=== PATIENT | female | born 1960 | race Caucasian/White ===

== ENCOUNTER → 2017-11-21 10:19 | Outpatient (CLI) | payer OTHER, SELFPAY ==
--- NOTE | 2017-11-21 10:22 | BD_ITS ---
STUDY: DUAL ENERGY X-RAY ABSORPTIOMETRY / DXA REASON FOR EXAM: Female, 57 years old. Menopause at age 45. Hormone therapy. Calcium. Minimal exercise. TECHNIQUE: Bone Mineral Density (BMD) measurements of lumbar spine and bilateral hips were obtained. COMPARISON: December 24, 2012 FINDINGS: Lumbar Spine (L1-L4): g/cm2 (1.276) / T-score (0.6) / Z-score (1.6) Findings are suggestive of normal bone density with a low fracture risk. Left Femur Total: g/cm2 (1.123) / T-score (0.9) / Z-score (1.7) Left Femoral Neck: g/cm2 (1.022) / T-score (-0.1) / Z-score (1.1) Right Femur Total: g/cm2 (1.013) / T-score (0.0) / Z-score (0.8) Right Femoral Neck: g/cm2 (0.959) / T-score (-0.6) / Z-score (0.5) The T-Scores on the most recent prior examination were: Lumbar Spine (L1-L4): There has been no change of bone density since the previous examination. Left Femur Total: There is a been a decrease in bone mineral density of -7.4%. Right Femur Total: There is been a decrease in bone mineral density of -9.2%. BD/Dexa Bone Density Study IMPRESSION: The patient is considered normal as outlined below according to World Gianfr[employer] Organization (WHO) criteria with a low fracture risk. There has been worsening of bone density since the previous examination. Reference Information: The T-score is the number of standard deviations above or below the standard which is normal for young adults at their peak bone mineral density. The World Health Organization (WHO) interprets the T-scores as follows: Above -1 Normal bone density Between -1 and -2.5 Osteopenia Equal to / or below -2.5 Osteoporosis As a practical clinical guideline, osteopenia may be graded as follows: Mild -1 through -1.5 Moderate -1.6 through -2.0 Severe -2.1 through -2.4 The Z-score is the number of standard deviations above or below age-matched controls. A Z-score of less than -1.5 would be considered abnormal. References: 1. NIH Osteoporosis and Related Bone Diseases http://www.osteo.org 2. International Society for Clinical Densitometry http://www.iscd.org 3. National Osteoporosis Foundation http://www.nof.org Electronically Signed: Berto Wolf DO at 11:48 EDT Tel [phone], Service support ,
--- NOTE | 2017-11-21 10:24 | BI_ITS ---
MAMMOGRAPHY - BILATERAL SCREENING REASON FOR EXAM: Female, 57 years old. Routine annual screening examination. PERTINENT HISTORY: Non-contributory. TECHNIQUE: Digital bilateral breast riya (3D mammographic acquisition) in the CC and MLO projections. 2-D mediolateral oblique (MLO) and craniocaudad (CC) views of both breasts were obtained. CAD: Full Field Digital Mammography with Computer Added Detection was performed. COMPARISON: Comparison is made with prior study dated December 24, 2012. FINDINGS: Breast Composition: There are scattered areas of fibroglandular density. There are no dominant masses or suspicious calcifications. No other significant abnormalities are identified. There has been no significant change since the prior study. BI/SCREENING MAMM (CAD), BILAT IMPRESSION: Stable bilateral screening mammogram. Yearly follow-up mammogram recommended. (A) ASSESSMENT CATEGORY: BIRADS Category 1: Negative. A letter regarding these results will be sent to the patient by the facility within 30 days. Approximately 10% of breast cancers are not detected by mammography. A normal mammogram should not delay biopsy of a clinically suspicious abnormality. [id number] Electronically Signed: Yuniel Coleman MD at 11:10 EDT Tel [phone], Service support ,
== END ==
PROVIDERS: Family Provider Nurse Practitioner; PCP Internal Medicine; Visit Provider Family Medicine
DX: Z12.31 Encounter for screening mammogram for malignant neoplasm of breast (principal); Z78.0 Asymptomatic menopausal state
CPT/HCPCS: 77063; 77067; 77080

== ENCOUNTER → 2019-01-06 15:34 | Outpatient (CLI) | payer OTHER, SELFPAY ==
--- NOTE | 2019-01-06 15:36 | BI_ITS ---
MAMMOGRAPHY - BILATERAL SCREENING REASON FOR EXAM: Female, 58 years old. Routine annual screening examination. PERTINENT HISTORY: Non-contributory. The patient complains of left breast redness and inflammatory changes. TECHNIQUE: Digital bilateral breast risa (3D mammographic acquisition) in the CC and MLO projections. 2-D mediolateral oblique (MLO) and craniocaudad (CC) views of both breasts were obtained. CAD: Full Field Digital Mammography with Computer Added Detection was performed. COMPARISON: Comparison is made with prior study dated November 21, 2017 and December 24, 2012. FINDINGS: Breast Composition: The breasts are almost entirely fatty. There now is evidence of a well-circumscribed 3.6 cm x 2.7 cm mass in the deep slightly inferior central portion of the left breast. A biopsy is recommended for further evaluation. No other significant abnormalities are identified. BI/SCREEN MAMM (CAD) W/RISA BILAT IMPRESSION: Annual 3.6 cm x 2.7 cm soft tissue mass in the deep slightly inferior central portion of the left breast. A biopsy recommended. ASSESSMENT CATEGORY: BIRADS Category 4: Suspicious - Biopsy Should Be Considered. A letter regarding these results will be sent to the patient by the facility within 30 days. Approximately 10% of breast cancers are not detected by mammography. A normal mammogram should not delay biopsy of a clinically suspicious abnormality. [id number] Electronically Signed: Yuniel Coleman, at 10:28 EDT , Service support ,
== END ==
PROVIDERS: Family Provider Family Medicine; PCP Family Medicine; Referring Provider Family Medicine; Visit Provider Family Medicine
DX: Z12.31 Encounter for screening mammogram for malignant neoplasm of breast (principal)
CPT/HCPCS: 77063; 77067

== ENCOUNTER → 2019-02-06 13:04 | Outpatient (CLI) | payer OTHER, SELFPAY ==
[2019-02-04 10:07] VITALS: BMI 33.1
--- NOTE | 2019-02-06 13:23 | MRI_ITS ---
STUDY: BILATERAL BREAST MR WITHOUT AND WITH CONTRAST REASON FOR EXAM: Female, 58 years old. Left breast cancer. TECHNIQUE: Multi-sequence multi-echo imaging of both breasts was performed with a dedicated breast coil. T1-weighted and T2-weighted images were performed before the administration of contrast. T1-weighted images were also performed after the administration of 18 IV Dotarem without complications. COMPARISON: Bilateral mammograms dated January 06, 2019 FINDINGS: RIGHT BREAST: The breast tissue is fatty with no background enhancement. There are no abnormal enhancing masses or areas of non-mass enhancement in the right breast. LEFT BREAST: The breast tissue is fatty with minimal background enhancement. Lobulated enhancing mass in the posterior, inferior and slightly lateral aspect of the breast measuring 4.1 cm x 2.7 cm x 3.4 cm, corresponding to the mammographic abnormality. Tissue clip artifact within the mass. At least 2 markedly enlarged left axillary lymph nodes, one measuring 2.8 cm and one measuring 1.7 cm. There is no abnormality in the visualized regions of the chest or liver. MRI/Breast Bilateral W/O and W IMPRESSION: 4.1 x 2.7 x 3.4 cm enhancing mass corresponding to the mammographic abnormality. 2. Markedly enlarged left axillary lymph nodes, highly suspicious for axillary metastases. Right breast unremarkable. CATEGORY: BIRADS Category 6: Known Biopsy-Proven Malignancy - Appropriate Action Should Be Taken. A letter regarding these results will be sent to the patient by the facility within 30 days. Electronically Signed: Elijah Gandhi MD at 18:17 EDT , Service support ,
== END ==
PROVIDERS: Family Provider Family Medicine; PCP Family Medicine
DX: C50.912 Malignant neoplasm of unspecified site of left female breast (principal)
CPT/HCPCS: 77049; A9575; A4216; C8908

== ENCOUNTER → 2019-02-12 10:45 | Outpatient (CLI) | payer OTHER, SELFPAY ==
[2019-02-04 10:07] VITALS: BMI 33.1
[2019-02-11 15:07] VITALS: BMI 33.1
--- NOTE | 2019-02-12 10:57 | ECHODONC_ITS ---
Reason For Study: PRE-CHEMOTHERAPY Procedure This was a 2D Doppler, Color Flow transthoracic echocardiogram. Myocardial strain analysis was performed in this exam to aid in the assessment of cardiac function. Exam performed in department. Left Ventricle Normal size and thickness. The estimated ejection fraction is 65 %. Normal diastology for age. The global longitudinal strain = -18.2 % (normal). No regional wall motion abnormalities noted. Right Ventricle Normal size and thickness. Normal systolic function. Atria Normal left atrium. Normal right atrium. Normal atrial septum. Mitral Valve The mitral valve is structurally normal. No prolapse or stenosis seen. Tricuspid Valve Normal tricuspid valve. Trivial tricuspid valve insufficiency. Right ventricular systolic pressure estimated to be 28 mmHg. Aortic Valve Normal aortic valve. Trisinus/trileaflet aortic valve. Pulmonic Valve Normal pulmonic valve. Great Vessels Normal aortic root. Normal arch. Normal inferior vena cava. The inferior vena cava is dilated. Pericardium/Pleural No pericardial effusion. MMode/2D Measurements & Calculations LVIDd: 4.5 cm IVSd: 0.84 cm Ao root diam: 3.2 cm LVIDs: 2.9 cm LVPWd: 0.77 cm RVDd: 3.2 cm FS: 35.6 % LAV(MOD-bp): 48.5 ml LVAd ap4: 28.1 cm2 SV(MOD-sp4): 53.3 ml LAV(MOD-bp) Indexed: 24.5 ml/m2 EDV(MOD-sp4): 81.3 ml LAV(MOD-sp2): 49.5 ml EDV(sp4-el): 83.4 ml LAV(MOD-sp4): 45.6 ml LVAs ap4: 13.7 cm2 ESV(MOD-sp4): 27.9 ml ESV(sp4-el): 27.0 ml EF(MOD-sp4): 65.6 % EF(sp4-el): 67.6 % SV(sp4-el): 56.4 ml LA A4 area: 17.8 cm2 LA dimension(2D): 3.2 cm RA A4 area: 14.4 cm2 Time Measurements MV dec time: 0.24 sec Doppler Measurements & Calculations MV E max manuel: 67.0 cm/sec Lat Peak E' Manuel: 11.9 cm/sec Med Peak E' Manuel: 10.8 cm/sec MV A max manuel: 57.3 cm/sec E/E' lat: 5.6 E/E' med: 6.2 MV E/A: 1.2 Ao V2 max: 150.6 cm/sec LV V1 max: 152.2 cm/sec PA V2 max: 73.6 cm/sec Ao max P.1 mmHg LV V1 max P.3 mmHg TR max manuel: 232.6 cm/sec TR max P.7 mmHg Interpretation Summary The estimated ejection fraction is 65 %. Normal diastology for age. Trivial tricuspid valve insufficiency. Right ventricular systolic pressure estimated to be 28 mmHg. The global longitudinal strain = -18.2 % (normal). There is no comparison study available. Ordering Physician: Nelsy Middleton Referring Physician: Nelsy Middleton Performed By: Stacy King RDCS
== END ==
PROVIDERS: Family Provider Family Medicine; PCP Family Medicine; Referring Provider Internal Medicine Hematology & Oncology; Visit Provider Internal Medicine Hematology & Oncology
DX: Z51.11 Encounter for antineoplastic chemotherapy (principal)
CPT/HCPCS: 0399T; 93306

== ENCOUNTER 2019-02-18 05:47 | Day surgery (SDC) | payer OTHER, SELFPAY ==
[2019-02-11 15:07] VITALS: BMI 33.1
[2019-02-17 14:43] VITALS: BMI 33.1
[2019-02-18 06:15] VITALS: BP 108/83; PULSE 75; RESP 16; TEMP 37.2; O2SAT 98; BMI 33.0
[2019-02-18] MEDS: Lactated Ringers 1,000 ML 100 ML IV (06:25)
[2019-02-18] MEDS: Cefazolin 2 GM in 0.9% Normal Saline 100 ML IV (07:00)
--- NOTE | 2019-02-18 07:15 | HP_ITS ---
Intake Vital Signs 02/11/19 Body Mass Index (BMI) 33.1 02/11/19 Height 5 ft 5 in 02/11/19 Weight: 199 lb 4 oz 02/11/19 Body Mass Index (BMI) 33.1 02/11/19 Blood Pressure 110/72 02/11/19 Blood Pressure Location Rt brachial 02/11/19 Blood Pressure Position Sitting 02/11/19 Respiratory Rate 16 02/11/19 Pulse Rate 93 02/11/19 Pulse Source Monitor 02/11/19 Temperature 97.9 F 02/11/19 Temperature Source Oral 02/11/19 Pulse Ox 98 02/11/19 Oxygen Delivery Method room air Intake Visit Reasons: Port Consult Chief Complaint: Breast cancer Circular Stuffer Required: No Is patient in pain?: No Allergies No Known Allergies Allergy (Verified 02/11/19 15:05) Medications Cholecalciferol (Vitamin D3) [Vitamin D3] 10,000 unit PO DAILY 02/03/19 [History Confirmed 02/11/19] Multivitamin [Multiple Vitamins] 1 tab PO DAILY 02/03/19 [History Confirmed 02/11/19] Ropinirole HCl [Requip] 1 mg PO DAILY 02/03/19 [History Confirmed 02/11/19] Magnesium Oxide [Magnesium] 1,000 mg PO DAILY 02/04/19 [History Confirmed 02/11/19] PFS Medical History (Updated 02/11/19 @ 15:02 by Maria M Magana) Left breast mass (Acute) Abnormal screening mammogram (Acute) Cancer of central portion of left female breast (Acute) Regional lymph node metastasis present (Acute) Surgical History (Updated 02/11/19 @ 15:02 by Maria M Magana) H/O left breast biopsy (Acute) History of appendectomy (Acute) History of removal of ovarian cyst (Acute) History of total hysterectomy (Acute) Family History Mother Heart disease Glaucoma Father Pulmonary fibrosis Father Heart disease Social History (Updated 02/12/19 @ 15:10 by Michelle Montejo MD) Smoking Status: Never smoker alcohol intake: never substance use type: does not use caffeine: Yes what type of physical activity do you participate in: none frequency: does not exercise seatbelt use: always HPI HPI HPI: DYLAN ORTIZ, is a 58 F who presents to the office today for HPI HPI Surgical H&P: Yes HPI: DYLAN ORTIZ, is a 58 F who presents to the office today for port placement due to left breast cancer with mets to left axillary nodes. Patient is scheduled to have a PET scan on and started on neoadjuvant chemotherapy either on 02/17 or 02/19. Patient's surgeon is Dr. Whitlock at [facility]. ROS General General: Yes fatigue and breast cancer; no weight change or colon cancer Breast Breast: Yes left breast lump, abnormal mammogram and abnormal US; no right breast lump Exam Const General: cooperative, comfortable, no acute distress Chest Chest palpation & inspection: other (Normal inspection and palpation of upper bilateral chest) Breast Palpation: Yes axillary lymphadenopathy (On the left) Assessment & Plan Problems 1. Encounter for adjustment or management of vascular access device Z45.2 2. Cancer of central portion of left female breast C50.112 3. Regional lymph node metastasis present C77.9 Plan I have discussed above with the patient- Port-a-Cath placement. Right IJ Port-A-Cath Patient has been counseled as to the risks/benefits of the procedure. I have explained the risks of the surgery, including but not limited to: infection, bleeding, injury to any blood vessels/nerves, injury to lungs (such as pneumothorax or hemothorax and need for chest tube), not having any access, nonfunctioning of port due to thrombosis, infection of port, etc. the patient understands and agrees to proceed. I have answered all the patient's questions to the patient?s satisfaction and the patient has no further questions. Michelle Montejo M.D. Pager: [phone] [facility] [address] [place] [address], [address] [place] [address] Office: [phone] Plan Detail Follow Up We will schedule placement of right IJ Port-A-Cath Coding Level of Care Code Off vis,new,level 3 Diagnoses Encounter for adjustment or management of vascular access device Z45.2 Cancer of central portion of left female breast C50.112 Regional lymph node metastasis present C77.9 02/12/19 1510 <Electronically signed by Michelle Germain am, MD> Date _ Michelle Montejo MD I have examined the patient the following changes are noted: Patient will have chemotherapy later today after port placed.
[2019-02-18] MEDS: Bupivacaine Mpf 0.5% 30 ML VIAL (08:01)
--- NOTE | 2019-02-18 08:09 | PCM.OPRPT ---
Report of Operation Date of Procedure: 02/18/19 Pre-Operative Diagnosis: z45.2, left breast cancer Post-Operative Diagnosis: Same Surgery/Procedure Performed:: 1. Insertion of right IJ Port-A-Cath. 2. Use of ultrasound. 3. Use of fluoroscopy Type of Anesthesia:: MAC/Supplemental/Local Anesthesiologist: Kulwant Joya Special Medications: Ancef 2 g IV x1 Specimen's removed: None Estimated Blood Loss (mL): < 10 cc Fluids Replaced: 800 cc Description of Procedure: After informed consent was given, the patient was brought to the operating room and placed in the supine position. Appropriate time out protocol was followed. He was then given IV conscious sedation for anesthesia. The patient's right upper chest and neck were then prepped with a surgical skin preparation and sterile surgical drapes were placed. After proper landmarks were ascertained, the skin at the upper right chest area was then infiltrated with 1:1 mixture of 1% lidocaine with epinephrine and 0.5% maricaine. A needle trocar was then inserted into the right internal jugular vein with ultrasound guidance-multiple vessels were viewed with u/s and the right IJ was chosen-- and there was good aspiration of venous blood. A wire was then threaded into the needle trocar and this was visualized under fluoroscopy to ensure that the wire was in the superior vena cava. Once this was done, then the needle trocar was removed. A small skin pari was made with an 11 blade knife at the wire entrance site. The dilator with the introducer sheath attached was then placed over the wire into the right internal jugular vein via the Seldinger technique and this was visualized under fluoroscopy. The dilator and sheath were in proper position as visualized by fluoroscopy. A subcutaneous pocket was then created caudad to the catheter insertion site. A transverse skin incision was made after the skin and subcutaneous tissues were infiltrated with local anesthetic. Blunt dissection was then used to create a space large enough for placement of the subcutaneous port. The catheter was then tunneled into the subcutaneous pocket. The wire and dilator were then removed. The catheter was then threaded into the introducer sheath and was positioned with its tip at the junction of the superior vena cava and the right atrium as visualized under fluoroscopy. The excess catheter was transected. The catheter was then attached to the subcutaneous port using manufacturers guidelines. The catheter was flushed with a heparin saline mixture prior to placement. Hemostasis was carefully controlled with electrocautery. The port was sutured to the subcutaneous fascia using 2-0 Vicryl suture at two sites. The port was then placed in the subcutaneous pocket and the sutures were ligated. The incision were reapproximated with interrupted subdermal 3-0 vicryl sutures. The skin was reapproximated with 3-0 nylon suture in a interrupted fashion. Steristrips were used for reinforcement of the skin closure at IJ insertion site and a sterile opsite dressings were applied. The patient tolerated the procedure well. Implants Used: Bard PowerPort isp M.R.I. 6Fr Lot [id number] ref [id number] Grafts/Implants Used: [employer] PowerPort isp M.R.I. 6Fr Lot [id number] ref [id number] - Complications none
--- NOTE | 2019-02-18 08:12 | RAD_ITS ---
STUDY: X-RAY CHEST REASON FOR EXAM: Female, 58 years old. Post port placement. TECHNIQUE: Single AP portable view of the chest. COMPARISON: None. FINDINGS: A right-sided portacatheter has been placed. The tip is at the junction of the superior vena cava and right atrium. Increased markings at the left lung base suggestive of bleeding atelectasis. There is no demonstrated pleural abnormality. Normal size heart. Normal mediastinum and vitor. Normal visualized pulmonary arteries. Normal visualized aortic arch and descending thoracic aorta. Normal visualized thoracic spine. Normal visualized ribs, clavicles, and shoulders. There is no demonstrated abnormality of the visualized soft tissue structures of the upper abdomen. RAD/CXR for Line Placement IMPRESSION: The tip of the right andres catheter is at the junction of the superior vena cava and right atrium. Findings suggestive of left basilar atelectasis. Electronically Signed: Yuniel Coleman, at 9:40 EDT , Service support ,
--- NOTE | 2019-02-18 08:12 | PCM.DC.POR ---
Discharge Diet: No Restrictions Discharge Activity: May not drive while taking narcotic pain medications. May shower in (days): 5 - Keep port site clean and dry for 5 days, okay to take a lower shower and upper sponge bath or tape off the port site with a Ziploc bag taped at the edges, okay for the neck incision to get wet after 1 day Lifting Restrictions: No lifting greater than 15 pounds with the right arm x1 week Call your doctor if your incision/area has: Continuous Slow Oozing, Sudden Increased Bleeding, Increased Pain/ Swelling, Increased Redness, Foul Smelling Discharge, Swelling at the incision site Call your doctor if you observe: Fever of 101 or Higher Change Dressing in (Days):: 2 - Okay to keep OpSite on for 2 days Additional Instructions: Okay to take ibuprofen 400-600 mg PO q6hr PRN along with the Percocet. Avoid Tylenol since there is already Tylenol in the Percocet. Take all pain meds with food. Percocet can cause constipation recommend taking daily stool softener (i.e. Colace/docusate) while taking the pain meds. Recommend starting some MiraLAX in 1 to 2 days if no bowel movement. If still no bowel movement the following day recommend taking magnesium citrate half the bottle and waiting 4-6 hours if still no results take the other half the bottle. Allergies/Adverse Reactions: Allergies No Known Allergies Allergy (Verified 02/17/19 14:43) Medications to take at Discharge Cholecalciferol (Vitamin D3) [Vitamin D3] 10,000 unit PO DAILY 02/03/19 Multivitamin [Multiple Vitamins] 1 tab PO DAILY 02/03/19 Ropinirole HCl [Requip] 0.25 - 1 mg PO DAILY PRN 02/03/19 Magnesium Oxide [Magnesium] 1,000 mg PO DAILY 02/04/19 Oxycodone HCl/Acetaminophen [Percocet 5/325] 1 - 2 tab PO Q6H PRN PRN 3 Days #5 tab 02/18/19 The following prescriptions were given: Oxycodone HCl/Acetaminophen [Percocet 5/325] 1 - 2 tab PO Q6H PRN PRN 3 Days #5 tab PRN Reason: Pain Transmission Status: Received by [facility] Primary Care Physician: Kj Aguilar DO [Primary Care Provider] - Test Results: Test results from this visit will be discussed in further detail at your follow-up appointment, if applicable. Please Follow Up With: Michelle Montejo MD - After 5:00pm and on the weekend call [phone] with any concerns When: Call the office for a follow-up appointment in 10 days for suture removal Proposed Discharge Date: 02/18/19
[2019-02-18 08:20] VITALS: BP 101/67; BP 108/83; PULSE 94; RESP 18; TEMP 36.2; O2SAT 94
[2019-02-18 08:25] VITALS: BP 108/83; BP 98/69; PULSE 80; RESP 18; O2SAT 94
[2019-02-18 08:30] VITALS: BP 108/83; BP 98/73; PULSE 75; RESP 18; O2SAT 95
[2019-02-18 08:35] VITALS: BP 103/74; BP 108/83; PULSE 74; RESP 18; TEMP 36.1; O2SAT 98
[2019-02-18 09:04] VITALS: BP 108/83
== END 2019-02-18 10:01 | disposition home or self-care (01) ==
LOC: SDC 05:48 → AC 05:49
PROVIDERS: Family Provider Family Medicine; PCP Family Medicine; Referring Provider Surgery; Visit Provider Surgery
PROC: (CPT 36561; principal; 2019-02-18 07:15)
DX: Z45.2 Encounter for adjustment and management of vascular access device (principal); C50.112 Malignant neoplasm of central portion of left female breast; C77.3 Secondary and unspecified malignant neoplasm of axilla and upper limb lymph nodes
CPT/HCPCS: 00532; 36561; 71045; 77001; J2405

== ENCOUNTER → 2019-06-06 09:07 | Outpatient (CLI) | payer OTHER, SELFPAY ==
[2019-05-14 08:40] VITALS: BMI 34.9
[2019-05-29 16:11] VITALS: BMI 35.1
--- NOTE | 2019-06-06 09:08 | MRI_ITS ---
STUDY: BILATERAL BREAST MR WITHOUT AND WITH CONTRAST REASON FOR EXAM: Female, 58 years old. Core biopsy diagnosis of breast cancer February 06, 2019. Status post chemotherapy. Follow-up MRI study. TECHNIQUE: Multi-sequence multi-echo imaging of both breasts was performed with a dedicated breast coil. T1-weighted and T2-weighted images were performed before the administration of contrast. T1-weighted images were also performed after the administration of 19 cc of Dotarem contrast without complications. COMPARISON: Prior breast MR study dated February 06, 2019. No new mammograms provided for comparison. FINDINGS: RIGHT BREAST: The breast tissue is fatty with no background enhancement. There are no abnormal enhancing masses or areas of non-mass enhancement in the right breast. LEFT BREAST: The breast tissue is fatty with no background enhancement. The left breast mass identified on the prior MRI is no longer evident. No areas of abnormal enhancement or non-mass enhancement are present. The 2 enlarged lymph nodes in the left axilla are no longer present. There is no abnormality in the visualized regions of the chest or liver. MRI/Breast Bilateral W/O and W IMPRESSION: Resolution of left breast mass and axillary adenopathy on the left. No significant abnormality on the breast MRI with contrast. CATEGORY: BIRADS Category 6: Known Biopsy-Proven Malignancy - Appropriate Action Should Be Taken. A letter regarding these results will be sent to the patient by the facility within 30 days. Electronically Signed: Elijah Gandhi MD at 12:13 EST , Service support ,
== END ==
PROVIDERS: Family Provider Family Medicine; PCP Family Medicine; Referring Provider Internal Medicine Hematology & Oncology; Visit Provider Internal Medicine Hematology & Oncology
DX: Z01.818 Encounter for other preprocedural examination (principal); C50.112 Malignant neoplasm of central portion of left female breast; C77.9 Secondary and unspecified malignant neoplasm of lymph node, unspecified; Z92.21 Personal history of antineoplastic chemotherapy
CPT/HCPCS: 77049; A9575; A4216; C8908

== ENCOUNTER 2019-09-01 15:00 | Outpatient (RCR) | payer OTHER, SELFPAY ==
[2019-08-05 14:10] VITALS: BMI 34.9
[2019-08-07 09:32] VITALS: BMI 34.3
[2019-08-19 14:28] VITALS: BMI 34.8
--- NOTE | 2019-08-20 14:55 | HP.OTEVAL ---
Patient's Visit Information STONE OTRIZ is a 58 year old F, referred to Occupational Therapy by Kj Aguilar DO, with a diagnosis of left UE edema. Date of Evaluation: 08/20/19 Occupational Therapist: ADRY Arredondo/Priyank, CHT - Subjective Subjective: This 58 year old female was seen for OT eval with dx of left arm edema after left mastectomy- 07-08-19 with 17 axillary node disscetion. pt arrives for ROM/strength and lymphedema precaution. pt feels her ROM and strength has returned but noticed swelling in left UE. pt has been doing HEP of ROM and HEP with t-band and would like to know what she can do during her radiation to assist with swelling. - ROM ROM Comments: pt demo ROM WNL - Lymphedema (Circumferential Measure) MCP: right 20cm left 20.2cm Wrist: right 17cm left 17.5cm Lower forearm: right 21.5cm left 22.5cm Largest forearm: right 26.8cm left 28cm Elbow: right 27cm left 28.5cm Largest humerus: right 32cm left 32.5cm Axcillary: right 34cm left 34cm - Sensation Sensation Comments: denies to fingers-. states under left UE some numbness - Quick DASH-Disab of Arm,Shoulder& Hand Quick DASH Score: 11.6650 - Goals Demonstrate a 20% reduction in edema by d/c: Yes Demonstrate adequate knowledge skin care/prec by 2nd week: Yes Demonstrate adequate knowledge therapeutic exercises by d/c: Yes Select approp compression garment w/donning/care/wear by d/c: Yes Voice need to replace compression garment every 4-6mo by dc: Yes - Rehabilitation General Assessment: pt demo with a slight increase in left UE edema- pt would benefit from skilled OT services to 1x week for 4 weeks to provide MLD, ed. on lymphedema mtg and use of compression garments for tavel. Pt demo understanding and agree to POC Rehabilitation Potential: Good - Anticipated Interventions Anticipated Interventions: Education re Diagnosis, Manual Lymph Drainage, Education re Life-long lymphedema Management, Education re Skin Care and Precautions, Education re Self Massage Techniques, Education re Correct Donning Tech,Care&Wearing Sched Comp Garments, Home Program - Visit Plan Frequency: 1x/Week Duration: 4 Weeks General Plan: pt will return to have therapist perform MLD and ed. pt further on self MLD TEXT: Thank you for the opportunity to evaluate your patient. For Medicare and Medicare HMO plans, please review the plan of care and approve it. It will need to be FAXED BACK to us at [phone] for Medicare purposes. Please let me know if there are questions or concerns regarding this plan of care. Physician Signature: Date:
--- NOTE | 2019-08-26 14:30 | HP.PTEVAL ---
Patient's Visit Information STONE ORTIZ is a 58 year old F referred to Physical Therapy by Kj Aguilar DO with a diagnosis of LBP with radiculopathy. Date of Evaluation: 08/26/19 Physical Therapist: Trent Mai DPT - Visit Plan Frequency: 2x /Week Duration: 4 Weeks Plan: Start with HS stretching, piriformis stretcing, hip flexor stretching, METS for pelvic positoning. Add in REIL as well. Progress core stability exercises as tolerated. Pt. asked about DN to her lumbar spine musculature. I talked to her to talk with her oncologist to determine if they felt comfortable with this procedure. Pt. consents. - Subjective Subjective: Pt. is here today for her initial evaluation with diagnosis of LBP with raddiculopathy down LLE. Pt. reports having pain for a few weeks now after being laid up with breast cancer and mastecomy. Pt. is no done with chemo, but is recieving radiation. Pt. reports having increased pain with prolonged sitting, expecially with getting up/down. Pt. reports having L sided SI pain that goes down her leg into hip and calf. She has started to see a chiropractor x1 visit, no chagne as of yet. Pt. denies N/T in iether LE. No muscle weakness. Pt. reports diffiiculty sleeping as she can not get comfortable as well. Pt. is hopeful to reduce symptoms. - Pain L post hip Pain Intensity (Out of 10): 5 Pain Intensity Range: 2, 9 L calf Pain Intensity (Out of 10): 5 Pain Intensity Range: 2, 9 L lumbar spine Pain Intensity (Out of 10): 1 Pain Intensity Range: 0, 5 L SI region Pain Intensity (Out of 10): 3 Pain Intensity Range: 3, 6 - Objective POSTURE: Pt. has rounded shoulder, fwrd flexed posture. Pt. has FH as well. Pt. has general slouched posture. Pt. is able to correct, but has increasred pain when doing so. Pt. has similar posture in stnace, no lateral shift deviation noted. PALPATION: Pt. had increased tenderness noted at L SI region and Bilat piriformis muscle bellies. Pt. has no pain with spring testing of Lumbar spine, hypomobility noted throughout. NEURO: normal throughout bilateral sensation and DTR bilaterally. Pt. has no neuro signs. ROM: LUMBAR SPINE: flexion- min loss increase NW, extension- min loss increase NW, SB ni loss Ne, rotation nil loss NE. Pt. has tight HS and hip flexors bilaterally. Pt. has increase in symptoms with hip ER and adduction, but minimally. MMT: Pt. has 5/5 strength of distal BLEs, 4/5 throughout hip musculature bilaterally increase in pain with L hip flexion and extension. GAIT: PT. has sligth fwrd flexed posture with gait, increased R lateral shift with walking. pt. reports increased pain with increased walking. - Special Tests L/S Slump test left side: Positive L/S Slump test right side: Negative L/S Left Straight Leg Raise: Positive L/S Right Straight Leg Raise: Negative Lumbar Standing: Flexion - Mechanical Response: No effect Lumbar Standing: Flexion - Symptoms During Testing: Decreases Lumbar Standing: Flexion - Symptoms After Testing: No better Lumbar Standing: Extension - Mechanical Response: No effect Lumbar Standing: Extension - Symptoms During Testing: Increases Lumbar Standing: Extension - Symptoms After Testing: No worse - Goals Goal 1:: LTG: Pt. to be I with HEP. Goal 2:: STG: Pt. to be able to sleep without increase in symptoms. Goal Time Frame: 2-4 Weeks Goal 3:: LTG: Pt. to have full lumbar ROM without increase in symptoms. Goal Time Frame: 4-6 Weeks Goal 4:: STG: Pt. to walk unlimited distances without increase in symptoms. Goal Time Frame: 2-4 Weeks Goal 5:: LTG: pt. to have increased core and hip strength increased by 1/2 grade of all effected musculature. Goal Time Frame: 4-6 Weeks Goal 6:: LTG: Pt. to complete all work activities without increase in symptoms. Goal Time Frame: 4-6 Weeks - Rehabilitation Potential Physical Therapy Diagnosis: Pt. has signs and symptoms of radicular symptoms. Pt. has + leg length discrepency indicative of SI disfuction, + gillettes test, she had some changes with repeated motions, but no much. Pt. would benefit from PT to increase lumbar ROM without increase in symptoms, progress core stability, increase overall erect posture and tolerance to all functional mobility. Rehabilitation Potential: Good - Anticipated Interventions Patient/Client Instruction: Educate patient on: Condition, Plan of Care, Risk Factors, Benefits of Fitness Program For the Purpose of:: To improve decision making, To facilitate caregiver knowledge, To improve self management, To prevent re-injury, To improve ability to perform tasks related to life management, To improve tolerance to ADL's Therapeutic Exercise to Include: Strength training, Power training, Body mechanics, Postural training, Flexibilty training, Gait and locomotor training, Passive ROM, Active ROM For the Purpose of:: To decrease pain, To decrease swelling/inflammation, To increase ROM, To improve nutrient delivery to tissue, To increase oxygenation perfusion, To improve muscle performance and motor function, To improve ability of physical actions for home/community/work/leisure, To improve gait and locomotor functions, To improve health of tissue, To decrease soft tissue restriction, To increase flexibility/ROM Manual Therapy Techniques to Include: Mobilization, Passive ROM, Functional dry needling, Soft tissue mobilization For the Purpose of:: To decrease pain, To decrease swelling/inflammation, To increase ROM, To improve nutrient delivery to tissue Thank you for the opportunity to evaluate your patient. For Medicare and Medicare HMO plans, please review the plan of care and approve it. It will need to be FAXED BACK to us at [phone] for Medicare purposes. For Medicare only, by signing this I certify the plan of care. Please let me know if there are questions or concerns regarding this plan of care. Physician Signature: Date:
--- NOTE | 2019-11-18 12:27 | HP.OT.NRP ---
STONE ORTIZ was seen in my office for initial evaluation on 08/20/19. The following Plan of Care was established for this patient: Initial Frequency: 1x/Week Initial Duration: 4 Weeks Plan: return as needed in next 6 weeks Anticipated Interventions: Education re Diagnosis, Manual Lymph Drainage, Education re Life-long lymphedema Management, Education re Skin Care and Precautions, Education re Self Massage Techniques, Education re Correct Donning Tech,Care&Wearing Sched Comp Garments, Home Program This patient was last seen in our office 08/25/19. Pertinent comments regarding their Occupational therapy will appear below: pt was seen for 2 OT session. pt was ed. on ROM and was progressing pt has not scheduled any further skilled therapy sessions and is d/c at this time due to time lapse in skilled services. At this point I will be discontinuing this patient from occupational therapy. I would be happy to see this patient again in the future if found appropriate by the physician. Thank you! Whit Edwards, OTR/L, CHT
== END 2019-09-01 19:00 | disposition home or self-care (01) ==
LOC: PT 15:00
PROVIDERS: PCP Family Medicine; Referring Provider Family Medicine; Visit Provider Family Medicine
DX: C50.312 Malignant neoplasm of lower-inner quadrant of left female breast (principal); Z17.0 Estrogen receptor positive status [ER+]
CPT/HCPCS: 97035; 97110; 97140; 97161; 97166

== ENCOUNTER → 2020-01-15 15:56 | Outpatient (CLI) | payer OTHER, SELFPAY ==
[2019-08-05 14:10] VITALS: BMI 34.9
[2019-10-28 13:49] VITALS: BMI 35.0
--- NOTE | 2020-01-15 16:05 | BD_ITS ---
STUDY: DUAL ENERGY X-RAY ABSORPTIOMETRY / DXA REASON FOR EXAM: Female, 59 years old. Age of todd 45. Pat is 205# and 64 and quot; a loss of 1 and quot; per pat. Past hx of using Estrodyl. Takes a multi-vit. Does a little exercising. Mother has osteo. TECHNIQUE: Bone Mineral Density (BMD) measurements of lumbar spine and bilateral hips were obtained. COMPARISON: Comparison is made with prior examination dated 12/24/2012. FINDINGS: Lumbar Spine (L1-L4): g/cm2 (1.267) / T-score (0.7) / Z-score (1.9) Findings are suggestive of normal bone density with a low fracture risk. Left Femur Total: g/cm2 (1.098) / T-score (0.7) / Z-score (1.6) Left Femoral Neck: g/cm2 (0.957) / T-score (-0.6) / Z-score (0.6) Right Femur Total: g/cm2 (1.029) / T-score (0.2) / Z-score (1.0) Right Femoral Neck: g/cm2 (0.918) / T-score (-0.9) / Z-score (0.3) The T-Scores on the most recent prior examination were: Lumbar Spine (L1-L4): There has been improvement of bone density since the previous examination. Left Femur Total: which represents a worsening of 2.2%. Right Femur Total: which represents an improvement of 1.6%. BD/Dexa Bone Density Study IMPRESSION: The patient is considered normal as outlined below according to World Gianfranco Organization (WHO) criteria with a low fracture risk. There has been improvement of bone density since the previous examination. Reference Information: The T-score is the number of standard deviations above or below the standard which is normal for young adults at their peak bone mineral density. The World Health Organization (WHO) interprets the T-scores as follows: Above -1 Normal bone density Between -1 and -2.5 Osteopenia Equal to / or below -2.5 Osteoporosis As a practical clinical guideline, osteopenia may be graded as follows: Mild -1 through -1.5 Moderate -1.6 through -2.0 Severe -2.1 through -2.4 The Z-score is the number of standard deviations above or below age-matched controls. A Z-score of less than -1.5 would be considered abnormal. References: 1. NIH Osteoporosis and Related Bone Diseases http://www.osteo.org 2. International Society for Clinical Densitometry http://www.iscd.org 3. National Osteoporosis Foundation http://www.nof.org Electronically Signed: Yuniel Coleman, at 13:07 EDT , Service support ,
== END ==
PROVIDERS: PCP Family Medicine; Referring Provider Internal Medicine Hematology & Oncology; Visit Provider Internal Medicine Hematology & Oncology
DX: C50.112 Malignant neoplasm of central portion of left female breast (principal); M85.80 Other specified disorders of bone density and structure, unspecified site; Z90.13 Acquired absence of bilateral breasts and nipples; Z90.12 Acquired absence of left breast and nipple
CPT/HCPCS: 77080

== ENCOUNTER → 2020-04-01 13:55 | Outpatient (CLI) | payer OTHER, SELFPAY ==
[2019-08-05 14:10] VITALS: BMI 34.9
[2020-03-03 11:26] VITALS: BMI 34.1
--- NOTE | 2020-04-01 13:55 | ECHODONC_ITS ---
Reason For Study: DYSPNEA/SOB Procedure This was a 2D Doppler, Color Flow transthoracic echocardiogram. Myocardial strain analysis was performed in this exam to aid in the assessment of cardiac function. Exam performed in department. Left Ventricle Normal LV size. Left ventricular systolic function is normal. The estimated ejection fraction is 65 %. Stage 1 diastolic dysfunction. No regional wall motion abnormalities noted. Right Ventricle Normal RV size. Normal systolic function. Atria Normal left atrium. Normal right atrium. Mitral Valve Normal mitral valve. Tricuspid Valve Normal tricuspid valve. Aortic Valve Normal aortic valve. Trisinus/trileaflet aortic valve. Pulmonic Valve Normal pulmonic valve. Great Vessels Normal aortic root. The pulmonary artery is normal size. Normal inferior vena cava. Pericardium/Pleural No pericardial effusion. MMode/2D Measurements & Calculations LVIDd: 4.0 cm IVSd: 0.90 cm Ao root diam: 3.2 cm LVIDs: 2.4 cm LVPWd: 0.96 cm RVDd: 3.3 cm FS: 41.2 % LAV(MOD-bp): 36.4 ml LVAd ap4: 21.2 cm2 SV(MOD-sp4): 36.0 ml LAV(MOD-bp) Indexed: 18.2 ml/m2 EDV(MOD-sp4): 53.6 ml LAV(MOD-sp2): 36.8 ml EDV(sp4-el): 54.8 ml LAV(MOD-sp4): 34.9 ml LVAs ap4: 10.6 cm2 ESV(MOD-sp4): 17.6 ml ESV(sp4-el): 16.7 ml EF(MOD-sp4): 67.2 % EF(sp4-el): 69.6 % SV(sp4-el): 38.2 ml LA A4 area: 14.5 cm2 LA dimension(2D): 3.3 cm RA A4 area: 14.0 cm2 Time Measurements MV dec time: 0.26 sec Doppler Measurements & Calculations MV E max manuel: 64.2 cm/sec Lat Peak E' Manuel: 8.6 cm/sec Med Peak E' Manuel: 7.3 cm/sec MV A max manuel: 79.7 cm/sec E/E' lat: 7.5 E/E' med: 8.8 MV E/A: 0.81 Ao V2 max: 160.6 cm/sec LV V1 max: 131.6 cm/sec PA V2 max: 93.4 cm/sec Ao max P.3 mmHg LV V1 max P.9 mmHg PI end-d manuel: 81.4 cm/sec Interpretation Summary Normal LV size. Left ventricular systolic function is normal. The estimated ejection fraction is 65 %. Stage 1 diastolic dysfunction. The global longitudinal strain is normal. The global longitudinal strain = -22.2 % (normal). Ordering Physician: Williams Bauman Referring Physician: BYRON SHIPMAN Performed By: Stacy King RDCS
== END ==
PROVIDERS: PCP Family Medicine; Visit Provider Internal Medicine Cardiovascular Disease
DX: I34.0 Nonrheumatic mitral (valve) insufficiency (principal); R06.00 Dyspnea, unspecified; R06.02 Shortness of breath
CPT/HCPCS: 93306; 93356

== ENCOUNTER 2020-04-29 15:00 | Outpatient (RCR) | payer OTHER, SELFPAY ==
[2019-08-05 14:10] VITALS: BMI 34.9
[2019-10-28 13:49] VITALS: BMI 35.0
--- NOTE | 2019-12-30 15:09 | HP.PTEVAL ---
Patient's Visit Information STONE ORTIZ is a 59 year old F referred to Physical Therapy by Dr. Kj Aguilar DO with a diagnosis of Upper back and cervical spine pain. Date of Evaluation: 12/23/19 Physical Therapist: Trent Mai DPT - Visit Plan Frequency: 2x /Week Duration: 4 Weeks Plan: Start with thoracic extension progression, pec stretcing. Progress to cervical retraction. - Subjective Pt. is here today for her initial evaluation with diagnosis of neck and upper back pain. Pt. reports having pain for a few months now with out a mech of injury. Pt. is also having N/T and pain in her L arm, generally throughout. Pt. reports no sudden weakness, but is having more pain today, especially in her medial forearm. Pt. 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 Pt. did have a mastectomy L side earlier this year with lymph node removal. Pt. did have similar pain in her low back ealier this year which is being managed. Pt. is having some pain in her shoulder and forearm. Pt. is hopeful to reduce symptoms in order to get back to all recreational actvitiies without limitations. - Pain L shoulder Pain Intensity (Out of 10): 2 Pain Intensity Range: 0, 4 L forearm Pain Intensity (Out of 10): 4 Pain Intensity Range: 0, 6 Comment: medial aspect - Objective POSTURE: Pt. has slighg FH posture with sligth rounded shoulders. Pt. has increased thoracic kyphosis, resulting in increased extension of lower cervical spine. PALPATION: Pt. has tenderness throughotu B cervical erector spinea. Hypomobility noted at CT junction and C5-C7, C7-T3. Mild increase in pain with spring testing. NEURO: Pt. reports normal sensation to light and sharp touch. Pt. did report slight tingling along medial arm on L side. ROM: CERVICAL SPINE: flexion min loss NE, extension min loss increase NW, rotation min/nil loss bilat NE, protractino - nil loss NE, retraction min loss increase NW. SHOULDERS- R shoulder full ROM without increase in symptoms. L shoulder- flexion 165deg NE, abd 165deg NE, functional ER- normal, functional IR normal. MMT: pt. has 5-/5 B UE strength throughout. No myotomal weaknesses noted. - Goals Goal 1:: LTG: Pt. to be I with HEP. Goal Time Frame: 4-6 Weeks Goal 2:: LTG: Pt. to have 0-2/10 pain in L arm and cervical spine. Goal Time Frame: 4-6 Weeks Goal 3:: LTG: Pt. to sleep throughout the night with no issues. Goal Time Frame: 4-6 Weeks Goal 4:: LTG: Pt. complete all work activities without increase in symptoms. Goal Time Frame: 4-6 Weeks Goal 5:: STG: Pt. to demonstrate improved posture in gym indicating increased postural awareness. Goal Time Frame: 2-4 Weeks Goal 6:: STG: Pt. to have full thoracic extension without increase in symptoms. Goal Time Frame: 2-4 Weeks - Rehabilitation Potential Physical Therapy Diagnosis: Pt. has signs and symptoms consistent with upper thoracic and lower cervical spine pain resulting in L arm pain. Pt. has a history of mastectomy L side, which I can not rule out impact from this surgery, but it appears to be most likely due to increased thoracic kyphosis most likely to protect post surgical area resulting in increased stress at CT joint. Rehabilitation Potential: Good - Anticipated Interventions Patient/Client Instruction: Educate patient on: Condition, Plan of Care, Risk Factors, Benefits of Fitness Program For the Purpose of:: To improve decision making, To facilitate caregiver knowledge, To improve self management, To prevent re-injury, To improve ability to perform tasks related to life management, To improve tolerance to ADL's Therapeutic Exercise to Include: Strength training, Body mechanics, Postural training, Flexibilty training, Passive ROM, Active ROM, Dynamic Lumbar Stabilization, Fernando Exercises For the Purpose of:: To decrease pain, To decrease swelling/inflammation, To increase ROM, To improve nutrient delivery to tissue, To increase oxygenation perfusion, To improve muscle performance and motor function, To improve ability to perform ADL's, To improve health of tissue, To decrease soft tissue restriction, To increase flexibility/ROM, To reduce risk of recurrence, To improve safety Thank you for the opportunity to evaluate your patient. For Medicare and Medicare HMO plans, please review the plan of care and approve it. It will need to be FAXED BACK to us at [phone] for Medicare purposes. For Medicare only, by signing this I certify the plan of care. Please let me know if there are questions or concerns regarding this plan of care. Physician Signature: Date:
--- NOTE | 2020-01-20 07:34 | HP.OTEVAL ---
Patient's Visit Information STONE ORTIZ is a 59 year old F, referred to Occupational Therapy by Dr. Kj Aguilar DO, with a diagnosis of breast cancer/left UE lymphedema. Date of Evaluation: 01/15/20 Occupational Therapist: Whit Edwards, NAYR/Priyank, CHT - Subjective This 59 year old female was seen for OT eval with dx of left arm edema after left mastectomy- 07-08-19 with 17 axillary node disscetion. pt arrives for ROM/strength and lymphedema precaution. pt feels her ROM and strength has returned but noticed swelling in left UE. pt states she was feeling good and had returned to performing her ADLS and IADLs but notices pain in her forearm about a month ago- pt also reports she started PT to work on strength and ROM- pt states she did not get her compression sleeve until las week. has glove but is to big for her so she hasnt been wearing it she has been wearing her sleeve down to her MCPs. - Pain left UE 2 Pain Intensity Range: 2, 5 - ROM ROM Comments: pt demo with limitations of shoulder flex and abd to 90* and then she gets tingling in her arm- - Lymphedema (Circumferential Measure) MCP: right 20cm left 22.2 cm Wrist: right 17cm left 18cm Lower forearm: right 21cm left 23 cm Largest forearm: right 26cm left 29cm Elbow: right 27cm left 28cm Largest humerus: right 32cm left 33cm Axcillary: right 34cm left 36cm Upper Exremity Comments: pt demo with a increase in lola from initial measurements 4 months ago (avg. increase was 2cm) - Goals Demonstrate a 20% reduction in edema by d/c: Yes Demonstrate adequate knowledge of self-massage by 2nd week: Yes Demonstrate adequate knowledge skin care/prec by 2nd week: Yes Demonstrate adequate knowledge therapeutic exercises by d/c: Yes Select approp compression garment w/donning/care/wear by d/c: Yes Voice need to replace compression garment every 4-6mo by dc: Yes - Rehabilitation General Assessment: pt demo with limited left shoulder ROM, scar adhesions and cording to left axilly webbing creaping down to elbow and forearm. with shoulder ROM pt has positive ting/numb. pt would benefit from skilled OT servcies 1-2x week for 6 weeks to cont. to ed. pt on SMLD, scar mtg, compression garment use and end range stretching. will cordinate therapy services with PT as to not overlap services. pt demo understanding and agree to POC. Rehabilitation Potential: Good - Anticipated Interventions A/AAROM/PROM, Scar Care, Triggerpoint Release, Desensitization, Modalities, Joint Protection/Energy Conservation, Ergonomic Education, Education re Diagnosis, Manual Lymph Drainage, Education re Life-long lymphedema Management, Education re Skin Care and Precautions, Education re Self Massage Techniques, Education re Correct Donning Tech,Care&Wearing Sched Comp Garments, Caregiver Training, Home Program - Visit Plan Frequency: 1-2x /Week Duration: 6 Weeks TEXT: Thank you for the opportunity to evaluate your patient. For Medicare and Medicare HMO plans, please review the plan of care and approve it. It will need to be FAXED BACK to us at [phone] for Medicare purposes. Please let me know if there are questions or concerns regarding this plan of care. Physician Signature: Date:
--- NOTE | 2020-02-18 11:32 | HP.PTREVAL ---
Dr. Kj Aguilar, DO, It has been my pleasure to treat STONE ORTIZ over the last 8 visits for Upper back and cervical spine pain. Please see the progress note below for an update on the physical therapy plan of care! Subjective: Pt. reports having mild CERVANTES this date, but had improved with OT. PT. reports tingling in hand has been a bit better. Pt. reports no major issues today. HEP compliant,. Objective/Function: Pt. tolerated all PT without adverse reaction. pt. is to trial exercises on own. She is to folloe up with PT as needed. Pt. has some stiff in her cervicaal ROM, greatest with extensin and wih rotation L. She is working on towel SNAGs to increase this ROM. Pt. is workin femi RTC exercises to increase stability as well. Pt. will be trying these for a 1 or 2 to determine if she can continue to manage, if not see can come back and seen me sooner. Plan Plan: Pt. will be HEP for 1-2 week to determine if she can continue to manage, if not see can come back and seen me sooner. Goals Goal 1:: LTG: Pt. to be I with HEP. Goal Time Frame: 4-6 Weeks Goal Progress: Progressing Goal 2:: LTG: Pt. to have 0-2/10 pain in L arm and cervical spine. Goal Time Frame: 4-6 Weeks Goal Progress: Progressing Goal 3:: LTG: Pt. to sleep throughout the night with no issues. Goal Time Frame: 4-6 Weeks Goal Progress: Progressing Goal 4:: LTG: Pt. complete all work activities without increase in symptoms. Goal Time Frame: 4-6 Weeks Goal Progress: Progressing Goal 5:: STG: Pt. to demonstrate improved posture in gym indicating increased postural awareness. Goal Time Frame: 2-4 Weeks Goal Progress: Goal Met Goal 6:: STG: Pt. to have full thoracic extension without increase in symptoms. Goal Time Frame: 2-4 Weeks Goal Progress: Goal Met Anticipated Interventions Patient/Client Instruction: Educate patient on: Condition, Plan of Care, Risk Factors, Benefits of Fitness Program For the Purpose of:: To improve decision making, To facilitate caregiver knowledge, To improve self management, To prevent re-injury, To improve ability to perform tasks related to life management, To improve tolerance to ADL's Therapeutic Exercise to Include: Strength training, Body mechanics, Postural training, Flexibilty training, Passive ROM, Active ROM, Dynamic Lumbar Stabilization, Fernando Exercises For the Purpose of:: To decrease pain, To decrease swelling/inflammation, To increase ROM, To improve nutrient delivery to tissue, To increase oxygenation perfusion, To improve muscle performance and motor function, To improve ability to perform ADL's, To improve health of tissue, To decrease soft tissue restriction, To increase flexibility/ROM, To reduce risk of recurrence, To improve safety Please do not hesitate to contact me at [phone] by phone or if you have questions or concerns regarding this new plan of care! Sincerely, CARLITOS BaileyT
== END 2020-04-29 19:00 | disposition home or self-care (01) ==
LOC: OT 15:00
PROVIDERS: PCP Family Medicine; Referring Provider Family Medicine; Visit Provider Family Medicine
DX: M62.838 Other muscle spasm (principal); M54.5 Low back pain; M62.830 Muscle spasm of back
CPT/HCPCS: 97110; 97140; 97161; 97166; 97530

== ENCOUNTER 2021-04-09 14:20 | Emergency (ER) | payer OTHER, SELFPAY ==
[2019-08-05 14:10] VITALS: BMI 34.9
[2021-04-09 14:21] VITALS: BP 123/90; PULSE 93; RESP 18; TEMP 36; O2SAT 100; BMI 34.7
--- NOTE | 2021-04-09 14:31 | ED.RN ---
Wound not observed but described as red like it's coming to a head. States was not like lump she felt before.
--- NOTE | 2021-04-09 14:49 | EDS_ITS ---
HPI History of Present Illness Chief Complaint: Wound Detail of Chief Complaint: Right breast cellulitis Informant: patient Onset/Context/Timing Onset: Days Context: Gradual Onset Timing: Continuous Current Severity: Mild Maximum Severity: Mild Narrative Narrative: 60-year-old female prior history of left breast cancer with a left breast mastectomy. Noticed redness and possible abscess to her right breast within the last 2 days. Today was more red was seen in urgent care center the emergency department. She denies any constitutional symptoms. She denies any fever or chills. Patient is not diabetic. 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 Chemotherapy management, encounter for Disproportion of reconstructed breast Edema of upper extremity Estrogen receptor negative status [ER-] Fatigue History of back problems Left breast mass Lymph edema Neuropathy Obesity Regional lymph node metastasis present Tachycardia Home Medications cholecalciferol (vitamin D3) 10,000 unit PO DAILY 02/03/19 [History Last Taken Unknown] multivitamin 1 tab PO DAILY 02/03/19 [History Last Taken Unknown] ropinirole 1 mg tablet 0.5 - 2 mg PO DAILY 03/05/19 [History Last Taken Unknown] omega-3 fatty acids-fish oil 1 ea PO DAILY 08/05/19 [History Last Taken Unknown] turmeric root extract 500 mg PO DAILY 02/09/20 [History Last Taken Unknown] ascorbic acid (vitamin C) 1,000 mg tablet 1 g PO DAILY tab 03/03/20 [History Last Taken Unknown] mecobalamin (vitamin B12) 1,000 mcg chewable tablet 1,000 mcg PO DAILY 02/23/21 [History Last Taken Unknown] bupropion HCl 150 mg 24 hr tablet, extended release 150 mg PO QAM 04/09/21 [History Last Taken Unknown] cephalexin 500 mg PO Q6H 10 Days #40 cap 04/09/21 [Rx Last Taken Unknown] [id number]-iron [Chlorella Caps] 1 cap PO 04/09/21 [History Last Taken Unknown] Allergy/AdvReac Type Severity Reaction Status Date / Time No Known Allergies Allergy Verified 04/09/21 14:23 Family History Mother Heart disease AFIB Glaucoma Osteoporosis Father Pulmonary fibrosis CAD (coronary artery disease) CABG 70'S Heart disease Brother Asthma Sister Asthma Surgical History H/O left breast biopsy History of appendectomy History of removal of ovarian cyst History of removal of Port-a-Cath History of total hysterectomy port placement Social History Smoking Status: Never smoker alcohol intake: never substance use type: does not use caffeine: Yes what type of physical activity do you participate in: none frequency: does not exercise seatbelt use: always additional social history: DOES USE ASPIRIN NEEDED DOES USE IBUPROFEN NEEDED ROS ROS ED ROS Narrative Denies recent illness. Denies fever and chills. Review of Systems ROS Unobtainable: Denies due to encephalopathy Constitutional Constitutional ED: Denies chills or fever(s) Eyes Eyes: Denies change in vision ENT ENT ED: Denies ear pain Cardiovascular Cardiovascular: Denies chest pain Respiratory/Chest Respiratory/Chest: Denies cough or dyspnea Gastrointestinal Gastrointestinal: Denies abdominal pain Genitourinary Genitourinary ED: Denies dysuria or hematuria Musculoskeletal Musculoskeletal: Denies arthralgias or myalgias Integumentary Reports rash Neurologic Neurologic: Denies headache(s) Psychiatric Psychiatric: Denies depression Endocrine Endocrinology: Denies polyuria Allergic/Immunologic Allergic/Immunologic ED: Denies urticaria EXAM Physical Exam Narrative Exam Narrative: 60-year-old female no acute distress. Vital signs stable afebrile. Lungs are clear. Heart regular rate and rhythm abdomen soft. Moving all 4 extremities. Minimal lymphedema left upper extremity. Chest wall right breast with her present in room there is redness on the right lateral side of the breast and a small topical abscess. No axillary lymphadenopathy. Left chest wall has a mastectomy. Otherwise exam unremarkable. Const Vital Signs: 04/09/21 14:21 Temperature 96.8 F L Temperature Source Temporal Pulse Rate 93 Respiratory Rate 18 Blood Pressure 123/90 H Blood Pressure Mean 101 Pulse Ox 100 Oxygen Delivery Method Room Air Positive well nourished and well developed; Negative for obese, cachectic, contractures or unkempt General Appearance ED: well developed and NAD; Negative for unkempt, cachectic, contractures, cyanotic or diaphoretic Nutritional Appearance: Negative for cachectic or obese HEENT Reports moist mucous membranes Negative for trauma or tenderness Eyes PERRL and EOMs intact bilaterally Neck no lymphadenopathy, supple and no JVD General: Negative for tenderness Chest Wall inspection of chest normal and palpation of chest normal Resp normal respiratory effort and clear to auscultation bilaterally Effort and Inspection: Negative for pain with movement Auscultation: Negative for rales, rhonchi or wheezes Cardio regular rate, regular rhythm, S1 normal heart sound, S2 normal heart sound and no murmurs GI normal to inspection, nondistended, normoactive bowel sounds, non-tender, non- distended and no masses Auscultation: normoactive bowel sounds Palpation: soft; Negative for tender Back/Spine no CVA tenderness Extremity normal to inspection Extremity Narrative: Mild lymphedema left upper extremity. General Extremety ED: Yes edema; Negative for tenderness General Extremity: edema Neuro oriented x3 Sensorium / Orientation: alert; Negative for orientation impaired, lethargic or stuporous Motor Exam: strength 5/5 throughout Psych mental status grossly normal Appearance: Negative for unkempt Skin no wounds Skin Narrative: Right breast cellulitis. Rashes: rashes noted MDM MDM MDM Narrative Medical decision making narrative: Patient with right breast cellulitis. Rhonda incision drainage of the small subcutaneous abscess. Area to be anesthetized with let and then lidocaine with epinephrine. She will be started on Keflex. Lab Data Attestation: I reviewed the patient's lab results. Lab results narrative: Hemogram shows normal white count of 4.5. Hemoglobin 13.7. No bands. Labs: Laboratory Results - last 24 hr 04/09/21 15:08 WBC 4.5 RBC 4.72 Hgb 13.7 Hct 41.6 MCV 88.1 MCH 29.0 MCHC 32.9 RDW Std Deviation 42.9 RDW Coeff of Emanuel 13.2 Plt Count 207 MPV 9.5 Immature Gran % (Auto) 0.200 Neut % (Auto) 75.2 H Lymph % (Auto) 13.7 L [place] % (Auto) 8.9 Eos % (Auto) 1.1 Baso % (Auto) 0.9 Absolute Neuts (auto) 3.4 Absolute Lymphs (auto) 0.62 L Nucleated RBC % 0 Procedures Other Procedures Procedure(s): Incision and drainage right lateral breast abscess. Let was placed over the area. Area was cleaned with iodine. I then injected local lidocaine with epinephrine. Made a 1 and half centimeter incision drained about 1 cc of purulent material. There was no larger abscess. I did probe the wound. Patient about an inch of quarter inch packing. Patient was instructed on wound care and to return if worse. Pack removal in 4 days. Discharge Plan Triage Chief Complaint: Wound ED Provider: Sherif Huynh Dx/Rx/DC Orders Clinical Impression: Cellulitis of right breast, History of incision and drainage Instructions: Abscess Drainage, ED Cellulitis Prescriptions: New cephalexin 500 mg capsule 500 mg PO Q6H 10 Days Qty: 40 RF: 0 No Action ascorbic acid (vitamin C) 1,000 mg tablet 1 g PO DAILY RF: 0 mecobalamin (vitamin B12) 1,000 mcg tablet,chewable 1,000 mcg PO DAILY RF: 0 bupropion HCl 150 mg tablet extended release 24 hr 150 mg PO QAM RF: 0 multivitamin 1 EACH tablet 1 tab PO DAILY RF: 0 cholecalciferol (vitamin D3) 10,000 UNIT tablet 10,000 unit PO DAILY RF: 0 ropinirole 1 mg tablet 0.5 - 2 mg PO DAILY RF: 0 omega-3 fatty acids-fish oil 1 EACH capsule 1 ea PO DAILY RF: 0 turmeric root extract 500 MG capsule 500 mg PO DAILY RF: 0 Chlorella Caps 0.45-9-67 [id number] Capsule 1 cap PO RF: 0 Primary Care Provider: Kj Aguilar Referrals: Kj Aguilar, [Primary Care Provider] - Disposition Disposition: Home, Self Care
[2021-04-09] MEDS: Cephalexin 250 MG Capsule 500 MG PO (15:02)
[2021-04-09] MEDS: Lidocaine 1% /Epi 1:100 (20ml) 20 ML Vial 10 ML INFILT (15:02)
[2021-04-09] MEDS: Lidocaine/Epi/Tetracaine 50 ML 1 APPLIC TOPICAL (15:03)
[2021-04-09 15:20] LABS: Absolute Lymphocyte Count 0.62 X10^3/uL (0.83-4.51); Absolute Neutrophil Count 3.4 X10^3/uL (2.0-7.7); Basophil# 0.04 X10^3/uL; Basophil% 0.9 % (0-1); Eosinophil# 0.05 X10^3/uL; Eosinophils% 1.1 % (0-5); Hematocrit 41.6 % (37-47); Hemoglobin 13.7 g/dL (12.0-15.0); Lymphocyte # 0.62 X10^3/ul (0.83-4.51); Lymphocyte % 13.7 % (19-41); Mean Corp Hgb Conc 32.9 g/dL (32-36); Mean Corpuscular Volume 88.1 fL (81-99); Mean Platelet Vol. 9.5 fl (6.2-12.0); Monocyte% 8.9 % (0-10); NRBC Flagged by Analyzer 0 % (0-5); Neutrophil # 3.39 X10^3/uL (2.7-7.7); Neutrophil % 75.2 % (47-70); Platelet Count 207 K/mm3 (150-450); RBC Distribution Width CV 13.2 % (11.6-14.6); RBC Distribution Width SD 42.9 fl (35.1-43.9); Red Blood Count 4.72 M/mm3 (4.2-5.4); White Blood Count 4.5 K/mm3 (4.4-11.0)
[2021-04-09 16:03] VITALS: RESP 17
== END 2021-04-09 16:03 | disposition home or self-care (01) ==
PROVIDERS: Emergency Provider Emergency Medicine; PCP Family Medicine
DX: N61.0 Mastitis without abscess (principal); E66.9 Obesity, unspecified; Z85.3 Personal history of malignant neoplasm of breast; Z90.13 Acquired absence of bilateral breasts and nipples; C77.9 Secondary and unspecified malignant neoplasm of lymph node, unspecified; G62.9 Polyneuropathy, unspecified; I89.0 Lymphedema, not elsewhere classified; N65.1 Disproportion of reconstructed breast; Z17.1 Estrogen receptor negative status [ER-]
CPT/HCPCS: 10060; 85025; 99285; A4216

== ENCOUNTER → 2021-06-08 14:53 | Outpatient (CLI) | payer OTHER, SELFPAY ==
[2019-08-05 14:10] VITALS: BMI 34.9
--- NOTE | 2021-06-08 14:56 | ECHODONC_ITS ---
Reason For Study: Dyspnea/SOB Procedure This was a 2D Doppler, Color Flow transthoracic echocardiogram. Myocardial strain analysis was performed in this exam to aid in the assessment of cardiac function. Exam performed in department. Left Ventricle Normal LV size. The estimated ejection fraction is 65 %. Left ventricular systolic function is normal. No regional wall motion abnormalities noted. Right Ventricle Normal RV size. Normal systolic function. Atria Normal left atrium. Normal right atrium. Mitral Valve Normal mitral valve. Tricuspid Valve Normal tricuspid valve. Aortic Valve Normal aortic valve. Pulmonic Valve Normal pulmonic valve. Great Vessels Normal aortic root. The pulmonary artery is normal size. Inferior vena cava collapse with sniff. Pericardium/Pleural No pericardial effusion. MMode/2D Measurements & Calculations LVIDd: 3.6 cm IVSd: 1.3 cm LA dimension: 3.3 cm LVIDs: 2.2 cm LVPWd: 0.83 cm FS: 37.3 % LAV(MOD-bp): 52.3 ml LA A4 area: 17.2 cm2 RA A4 area: 15.2 cm2 LAV(MOD-bp) Indexed: 26.2 ml/m2 LAV(MOD-sp2): 53.2 ml LAV(MOD-sp4): 47.0 ml Time Measurements MV dec time: 0.27 sec Doppler Measurements & Calculations MV E max manuel: 63.4 cm/sec Lat Peak E' Manuel: 8.6 cm/sec Med Peak E' Manuel: 12.7 cm/sec MV A max manuel: 70.4 cm/sec E/E' lat: 7.3 E/E' med: 5.0 MV E/A: 0.90 MV V2 max: 71.7 cm/sec MV P1/2t max manuel: 64.9 cm/sec Ao V2 max: 122.8 cm/sec MV max P.1 mmHg MV P1/2t: 77.7 msec Ao max P.0 mmHg MV V2 mean: 43.3 cm/sec MV dec slope: 244.6 cm/sec2 MV mean P.87 mmHg MVA(P1/2t): 2.8 cm2 MV V2 VTI: 20.9 cm LV V1 max: 113.3 cm/sec PA V2 max: 85.7 cm/sec PI end-d manuel: 86.7 cm/sec LV V1 max P.1 mmHg TR max manuel: 167.3 cm/sec TR max P.2 mmHg ECHO/ONC Echo Complete Interpretation Summary Normal LV size. The estimated ejection fraction is 65 %. Left ventricular systolic function is normal. Structurally normal valves. Ordering Physician: Williams Bauman Referring Physician: Kj Aguilar Performed By: Williams Bauman MD
== END ==
PROVIDERS: PCP Family Medicine; Referring Provider Internal Medicine Cardiovascular Disease; Visit Provider Internal Medicine Cardiovascular Disease
DX: I34.0 Nonrheumatic mitral (valve) insufficiency (principal)
CPT/HCPCS: 93306; 93356

== ENCOUNTER 2021-07-27 09:00 | Outpatient (RCR) | payer OTHER, SELFPAY ==
[2019-08-05 14:10] VITALS: BMI 34.9
--- NOTE | 2021-06-23 08:52 | HP.OTEVAL_ITS ---
Patient's Visit Information STONE ORTIZ is a 60 year old F, referred to Occupational Therapy by Dr. Nelsy Middleton MD, with a diagnosis of left UE lymphedema. Date of Evaluation: 06/22/21 Occupational Therapist: Whit Edwards, OTR/[place], CHT - Subjective This 60 year old female was seen for OT eval with dx of left UE lymphedema- pt has been seen in the past at this facility-. pt has compression sleeve- and glove- has home lymph pump-(FlexiTouch) that she is using about 1x a day-. pt states she will be having a sx on left UE in September for re-routing, but wanted to decrease her swelling in her left UE. - Lymphedema (Circumferential Measure) MCP: right 20cm left 22cm Wrist: right 17cm left 18.5cm Lower forearm: right 21cm left 26.5cm Largest forearm: right 26cm left 31.5cm Elbow: right 27cm left 29.5cm Largest humerus: right 32cm left 34cm Axcillary: right 34cm left 35cm Upper Exremity Comments: pts measurements from 01/28. left MCP 22.2. left wrist 18cm. left Lower forearm 23cm. left largest Forearm 29cm. left elbow 28cm. left Humerus 33cm. left axillary 36cm. pt demo with increase swelling of left UE- most changes are in forearm - Sensation Sensation Comments: left UE will tingle at times - Quick DASH-Disab of Arm,Shoulder& Hand Quick DASH Score: 44.6425 - Goals Demonstrate a 20% reduction in edema by d/c: Yes Demonstrate adequate knowledge of self-bangaging by 1st week: Yes Demonstrate adequate knowledge of self-massage by 2nd week: Yes Demonstrate adequate knowledge therapeutic exercises by d/c: Yes Select approp compression garment w/donning/care/wear by d/c: Yes Voice need to replace compression garment every 4-6mo by dc: Yes Goal:: use of home flexi-Touch 2 x a day to assist in lymphedema mtg. - Rehabilitation General Assessment: Pt demo with increase swelling of left UE-(forearm more than biceps region) due to her result of breast cancer and lymph node removal -. pt would benefit from skilled OT services 1-2x week for 4 weeks to work with pt in decreasing limb size and home mtg of lymph. Today therapist ed. pt on need of compression wraps at night - use of compression garment and understanding use of home FlexiTouch to assist in her lymphedema mtg. pt demo understanding and agree to POC. Rehabilitation Potential: Good - Anticipated Interventions Education re assistive Equipment, Education re Diagnosis, Manual Lymph Drainage, Education re Life-long lymphedema Management, Education re Self-Bandaging Techniques, Education re Skin Care and Precautions, Education re Self Massage Techniques, Education re Correct Donning Tech,Care&Wearing Sched Comp Garments, Home Program - Visit Plan Frequency: 1x/Week Duration: 4 Weeks TEXT: Thank you for the opportunity to evaluate your patient. For Medicare and Medicare HMO plans, please review the plan of care and approve it. It will need to be FAXED BACK to us at [phone] for Medicare purposes. Please let me know if there are questions or concerns regarding this plan of care. Physician Signature: Date:
--- NOTE | 2021-10-11 15:33 | HP.OT.NRP ---
STONE ORTIZ was seen in my office for initial evaluation on 06/22/21. The following Plan of Care was established for this patient: Initial Frequency: 1x/Week Initial Duration: 4 Weeks Anticipated Interventions: Education re assistive Equipment, Education re Diagnosis, Manual Lymph Drainage, Education re Life-long lymphedema Management, Education re Self-Bandaging Techniques, Education re Skin Care and Precautions, Education re Self Massage Techniques, Education re Correct Donning Tech,Care&Wearing Sched Comp Garments, Home Program This patient was last seen in our office 07/27/21. Pertinent comments regarding their Occupational therapy will appear below: pt was seen for 5 OT session for Lymphedema- pt was having reconstructive sx by plastic surgeon in September. at this time pt D/c as new on-set of pts POC. At this point I will be discontinuing this patient from occupational therapy. I would be happy to see this patient again in the future if found appropriate by the physician. Thank you! Whit Edwards, OTR/L, CHT
== END 2021-07-27 19:00 | disposition home or self-care (01) ==
LOC: OT 09:00
PROVIDERS: PCP Family Medicine; Referring Provider Internal Medicine Hematology & Oncology; Visit Provider Internal Medicine Hematology & Oncology
DX: I89.0 Lymphedema, not elsewhere classified (principal)
CPT/HCPCS: 97140; 97166; 97530

== ENCOUNTER → 2022-01-17 | Outpatient (CLI) | payer OTHER, SELFPAY ==
[2019-08-05 14:10] VITALS: BMI 34.9
--- NOTE | 2022-01-17 16:00 | BD_ITS ---
STUDY: DUAL ENERGY X-RAY ABSORPTIOMETRY / DXA REASON FOR EXAM: Female, 61 years old. POSTMENOPAUSE TECHNIQUE: Bone Mineral Density (BMD) measurements of lumbar spine and bilateral hips were obtained. COMPARISON: Comparison is made with prior study dated 01/15/2020. FINDINGS: Lumbar Spine (L1-L4): g/cm2 (1.022) / T-score (-0.2) / Z-score (1.3) Findings are suggestive of normal bone density with a low fracture risk. Left Femur Total: g/cm2 (1.049) / T-score (0.9) / Z-score (1.9) Left Femoral Neck: g/cm2 (0.742) / T-score (-1.0) / Z-score (0.4) Right Femur Total: g/cm2 (0.967) / T-score (0.2) / Z-score (1.2) Right Femoral Neck: g/cm2 (0.733) / T-score (-1.0) / Z-score (0.3) The T-Scores on the most recent prior examination were: Lumbar Spine (L1-L4): There has been worsening of bone density since the previous examination. Left Femur Total: which represents an improvement of 1.9%. Right Femur Total: which represents an improvement of 0.5%. BD/Dexa Bone Density Study IMPRESSION: The patient is considered normal as outlined below according to World Gianfranco Organization (WHO) criteria with a low fracture risk. There has been improvement of bone density since the previous examination. Reference Information: The T-score is the number of standard deviations above or below the standard which is normal for young adults at their peak bone mineral density. The World Health Organization (WHO) interprets the T-scores as follows: Above -1 Normal bone density Between -1 and -2.5 Osteopenia Equal to / or below -2.5 Osteoporosis As a practical clinical guideline, osteopenia may be graded as follows: Mild -1 through -1.5 Moderate -1.6 through -2.0 Severe -2.1 through -2.4 The Z-score is the number of standard deviations above or below age-matched controls. A Z-score of less than -1.5 would be considered abnormal. References: 1. NIH Osteoporosis and Related Bone Diseases www osteo.org 2. International Society for Clinical Densitometry www iscd.org 3. National Osteoporosis Foundation www nof.org Electronically Signed: Yuniel Coleman MD at 15:47 EDT ,
== END | disposition home or self-care (01) ==
LOC: OPBD 15:55
PROVIDERS: PCP Family Medicine; Visit Provider Internal Medicine Hematology & Oncology
DX: Z13.820 Encounter for screening for osteoporosis (principal); Z78.0 Asymptomatic menopausal state
CPT/HCPCS: 77080

== ENCOUNTER 2022-01-25 14:02 | Outpatient (RCR) | payer OTHER, SELFPAY ==
[2019-08-05 14:10] VITALS: BMI 34.9
--- NOTE | 2022-01-26 10:44 | HP.OTEVAL ---
Patient's Visit Information STONE ORTIZ is a 61 year old F, referred to Occupational Therapy by Dr. Nelsy Middleton MD, with a diagnosis of lymphedema left UE. Date of Evaluation: 01/25/22 Occupational Therapist: Whit Edwards, OTR/L, CHT - Subjective This 61 year old female was seen for OT eval with dx of lymphedema- pt has been seen in the past due to struggling with increase in swelling of left UE. pt underwent sx for routing of lyph vessel to vein- pt continues to struggle with swelling despite use of her compression sleeve- she is wearing night sleeve as well- pt has flexi touch devices but continues to struggle with circulation. pt would like to see what more she can do to assist with mtg. her lymphedema. - Pain left UE 3 Pain Intensity Range: 2, 4 - Lymphedema (Circumferential Measure) MCP: left 24cm Wrist: left 18cm Lower forearm: left 25cm Largest forearm: left 33cm Elbow: left 29cm Largest humerus: left 33cm Axcillary: left 35cm Upper Exremity Comments: pt demo increase fluid more in elbow down than above elbow- - Quick DASH-Disab of Arm,Shoulder& Hand Quick DASH Score: 33.3325 - Goals Demonstrate a 20% reduction in edema by d/c: Yes Demonstrate adequate knowledge of self-bangaging by 1st week: Yes Demonstrate adequate knowledge of self-massage by 2nd week: Yes Demonstrate adequate knowledge skin care/prec by 2nd week: Yes Demonstrate adequate knowledge therapeutic exercises by d/c: Yes Select approp compression garment w/donning/care/wear by d/c: Yes Voice need to replace compression garment every 4-6mo by dc: Yes - Rehabilitation General Assessment: pt has has been seen in the past for lymphedema treatments but is struggling with mtg. limb size. Pt would benefit from further OT services 1-2x week for 4 weeks to assist pt in change in her mtg. amy. to decrease limb size. Pt demo understanding and agree to POC. pt would benefit from a gradient sequential (K1024) unit (non-pneumatic compression controller with sequential calibrated gradient pressure device) this would allow pt the freedom to wear and move around her home or wear at work as well- pt receptive and agree to POC. Rehabilitation Potential: Good - Anticipated Interventions Education re assistive Equipment, Education re Diagnosis, Manual Lymph Drainage, Education re Life-long lymphedema Management, Education re Self-Bandaging Techniques, Education re Skin Care and Precautions, Education re Self Massage Techniques, Education re Correct Donning Tech,Care&Wearing Sched Comp Garments, Caregiver Training, Home Program - Visit Plan Frequency: 1-2x /Week Duration: 4 Weeks TEXT: Thank you for the opportunity to evaluate your patient. For Medicare and Medicare HMO plans, please review the plan of care and approve it. It will need to be FAXED BACK to us at [phone] for Medicare purposes. Please let me know if there are questions or concerns regarding this plan of care. Physician Signature: Date:
--- NOTE | 2022-05-23 14:22 | HP.OT.NRP ---
STONE ORTIZ was seen in my office for initial evaluation on 01/25/22. The following Plan of Care was established for this patient: Initial Frequency: 1-2x /Week Initial Duration: 4 Weeks Anticipated Interventions: Education re assistive Equipment, Education re Diagnosis, Manual Lymph Drainage, Education re Life-long lymphedema Management, Education re Self-Bandaging Techniques, Education re Skin Care and Precautions, Education re Self Massage Techniques, Education re Correct Donning Tech,Care&Wearing Sched Comp Garments, Caregiver Training, Home Program This patient was last seen in our office 01/25/22. Pertinent comments regarding their Occupational therapy will appear below: pt was seen for eval and measurements of compression device. pt has not scheduled further apts and due to time lapse in services pt d/c At this point I will be discontinuing this patient from occupational therapy. I would be happy to see this patient again in the future if found appropriate by the physician. Thank you! Whit Edwards, OTR/L, CHT
== END 2022-01-25 19:00 | disposition home or self-care (01) ==
LOC: OT 14:02
PROVIDERS: PCP Family Medicine; Referring Provider Internal Medicine Hematology & Oncology; Visit Provider Internal Medicine Hematology & Oncology
DX: I89.0 Lymphedema, not elsewhere classified (principal); C50.112 Malignant neoplasm of central portion of left female breast; Z17.1 Estrogen receptor negative status [ER-]; C77.9 Secondary and unspecified malignant neoplasm of lymph node, unspecified; Z90.13 Acquired absence of bilateral breasts and nipples
CPT/HCPCS: 97166

== ENCOUNTER 2023-02-14 14:40 | Outpatient (RCR) | payer OTHER, SELFPAY ==
[2019-08-05 14:10] VITALS: BMI 34.9
--- NOTE | 2023-02-15 10:07 | HP.OTEVAL ---
Patient's Visit Information Visit Information Visit Information: STONE ORTIZ is a 62 year old F, referred to Occupational Therapy by Dr. Nelsy Middleton MD, with a diagnosis of lymphedema. Date of Evaluation: 02/14/23 Occupational Therapist: Whit Edwards, NAYR/Priyank, CHT Subjective Subjective: This 61 year old female arrives with a lymphedema diagnosis with swelling in her LUE. Pt is known to this clinic with this dx. Pt reports difficulty with the heat and not wearing compression garments. Pt reports heaviness in L forearm. Pt reports working a lot of hours and is very fatigued by the end of the day - making it difficult to manage lymphedema at home. Pt reports having flexi touch and a gradient sequential non-pneumatic compression dayspring devices but not using this device at this time. Pt does state she is using the FlexiTouch in am only. Pt states she does not notice a change. Pt arrives with compression sleeve and glove on- states she needs new one but as insurance has changed and her arm has enlarged she is not able to get one- pt would like to work on decreasing limb size prior to ordering new arm sleeve and glove. Objective Objective/Observation: Pt left forearm edematous. Lymphedema (Circumferential Measure) MCP: right 18.5cm left 20cm Wrist: right 16.5cm left 19.5cm Lower forearm: right 19.5cm left 27cm Largest forearm: right 27cm left 36cm Elbow: right 26cm left 30cm Largest humerus: right 24cm left 35cm Axcillary: right 42.5cm left 45cm Goals Goal: Patient will demonstrate a 20% reduction in edema by discharge: Yes Goal: Patient will demonstrate adequate knowledge of self-bandaging by the end of the first week.: Yes Goal: Patient will select an appropriate compression garment and demonstrate adequate knowledge of correct donning technique, care and wearing schedule by discharge.: Yes Rehabilitation General Assessment: Pt seen for OT katie with a lymphedema diagnosis. Pt. demo need to decrease limb size prior to ordering new compression garments- however with her devices she is not sure how to get her arm down. Pt continues to have swelling in LUE, more predominantly in her left forearm. Pt would benefit from further skilled OT of 1-3 visits as pt learns how to continually manage lymphedema effectively. Therapist provided ed in changing wrapping schedule at night finger to axillary and if can not tolerate wrapping to use her quilted night garment JoVipak to assist in lymph circulation. Therapist also ed. pt to use her Flexitouch compression pump at night after her work day vs AM. to make changed to her current HEP to promote more effective utilization of lymphedema products and decrease limb size. Once limb has reduced will imitate measurements for new custom compression garments. Pt verbalizes understanding and agreeable to OT POC. Therapy session was directly supervised and doc. approved by Whit Edwards OTR/L,CHT. Rehabilitation Potential: Good Anticipated Interventions Anticipated Interventions: Education re Diagnosis, Education re Life-long lymphedema Management, Education re Self-Bandaging Techniques, Education re Self Massage Techniques, Education re Correct Donning Tech,Care&Wearing Sched Comp Garments and Home Program Other Interventions: ed. pt on utilization of compression pump daily an if need to increase to 2x a day to decrease limb size. Visit Plan Frequency: 1x/Week Duration: 2-4 Weeks TEXT: Thank you for the opportunity to evaluate your patient. For Medicare and Medicare HMO plans, please review the plan of care and approve it. It will need to be FAXED BACK to us at [phone] for Medicare purposes. Please let me know if there are questions or concerns regarding this plan of care. Physician Signature: Date:
== END 2023-02-14 19:00 | disposition home or self-care (01) ==
LOC: OT 14:40
PROVIDERS: PCP Family Medicine; Visit Provider Internal Medicine Hematology & Oncology
DX: I89.0 Lymphedema, not elsewhere classified (principal)
CPT/HCPCS: 97166

== ENCOUNTER → 2023-04-17 | Outpatient (CLI) | payer OTHER, SELFPAY ==
[2019-08-05 14:10] VITALS: BMI 34.9
--- NOTE | 2023-04-17 13:57 | VDUE_ITS ---
Reason For Study: Left arm swelling Left Proximal Left jugular vein is spontaneous, widely patent, phasic, with no intraluminal echogenicity noted. Left subclavian vein is spontaneous, widely patent, phasic, with no intraluminal echogenicity noted. Left Arm Left axillary vein is spontaneous, patent, phasic, competent, compressible and demonstrates augmentation. Left brachial vein is compressible. Left cephalic vein is compressible. Left basilic vein is compressible. Left Lower Arm Left radial vein is compressible. Left ulnar vein is compressible. Patient Safety Preliminary report faxed to Dr. Fu. VL/Venous Duplex US, Unilateral Interpretation Summary No evidence for acute deep venous thrombosis[left] upper extremity with patent and compressible cephalic and basilic veins. Ordering Physician: Gunner Fu Referring Physician: Kj Aguilar Performed By: Gabby Churchill RVT ???
== END | disposition home or self-care (01) ==
LOC: CVS 13:57
PROVIDERS: PCP Family Medicine; Referring Provider Student in an Organized Health Care Education/Training Program; Visit Provider Student in an Organized Health Care Education/Training Program
DX: C50.112 Malignant neoplasm of central portion of left female breast (principal); Z17.1 Estrogen receptor negative status [ER-]; R60.0 Localized edema
CPT/HCPCS: 93971